=== PATIENT | female | born 1995 | race Caucasian/White ===

== ENCOUNTER 2017-01-19 17:31 | Emergency (ER) | payer BC ==
[~2017-01-19] VITALS: Ht 174 cm; Wt 78.2 kg
[2017-01-19 17:32] VITALS: BP 148/72
[2017-01-19] MEDS ORDERED: LIDOCAINE 1%, 20ML SQ ONE (18:00)
[2017-01-19] MEDS ORDERED: LIDOCAINE 1%, 20ML ONE (18:10)
== END 2017-01-19 19:27 | disposition home or self-care (01) ==
LOC: ED 19:05
DX: S01.111A Laceration without foreign body of right eyelid and periocular area, initial encounter (principal); W20.8XXA Other cause of strike by thrown, projected or falling object, initial encounter; Y93.89 Activity, other specified; Y99.8 Other external cause status; Y92.099 Unspecified place in other non-institutional residence as the place of occurrence of the external cause
CPT/HCPCS: 12013; 99283; J3490